=== PATIENT | male | born 1970 | race Hispanic/Latino ===

== ENCOUNTER 2019-01-10 14:41 | Emergency (ER) | payer OTHER ==
[2019-01-10 15:00] VITALS: BMI 42.3
[2019-01-10 15:05] VITALS: TEMP 98.1; O2SAT 96
--- NOTE | 2019-01-10 16:20 | ED PDOC ---
Arrival/HPI - General Chief Complaint: Lower Extremity Problem/Injury Time Seen by Provider: 01/10/19 14:45 Historian: Patient - History of Present Illness Narrative History of Present Illness (Text): 01/10/19 16:18 49 y/o male with no significant PMH presents to the ED sent by PMD from [facility] c/o right leg swelling and redness x 3 days. Pt was seen at PMD office today, who sent him here to rule out DVT. No recent long immobilization, surgery, history of malignancy, hormone use, or tobacco use. Denies trauma/injury, fever, chills, leg pain, numbness, weakness, paresthesias, nausea, vomiting, dizziness, SOB, chest pain, or any other associated symptoms. Past Medical History - Provider Review Nursing Documentation Reviewed: Yes - Psychiatric Hx Substance Use: No Family/Social History - Physician Review Nursing Documentation Reviewed: Yes Family/Social History: No Known Family HX Smoking Status: Never Smoked Hx Alcohol Use: No Hx Substance Use: No Allergies/Home Meds Allergies/Adverse Reactions: Allergies No Known Allergies Allergy (Verified 01/11/19 09:42) Review of Systems - Review of Systems Constitutional: Normal. absent: Fevers Eyes: Normal. absent: Vision Changes ENT: Normal. absent: Sore Throat, Sinus Congestion Respiratory: Normal. absent: SOB, Cough Cardiovascular: Normal. absent: Chest Pain, Palpitations Gastrointestinal: Normal. absent: Abdominal Pain, Nausea, Vomiting Genitourinary Male: Normal. absent: Dysuria Musculoskeletal: Normal. absent: Back Pain, Neck Pain Skin: Other (swelling and redness, right leg) Neurological: Normal. absent: Headache, Dizziness Psychiatric: Anxiety Physical Exam Vital Signs Reviewed: Yes Vital Signs Temp Pulse Resp BP Pulse Ox 01/10/19 15:18 160/85 H 01/10/19 15:04 98.1 F 103 H 18 96 Temperature: Afebrile Blood Pressure: Normal Pulse: Tachycardic Respiratory Rate: Normal Appearance: Positive for: Well-Appearing, Non-Toxic, Comfortable, Other (obese) Pain Distress: None Mental Status: Positive for: Alert and Oriented X 3 - Systems Exam Head: Present: Atraumatic, Normocephalic Pupils: Present: PERRL Extroacular Muscles: Present: EOMI Conjunctiva: Present: Normal Mouth: Present: Moist Mucous Membranes Neck: Present: Normal Range of Motion Respiratory/Chest: Present: Clear to Auscultation, Good Air Exchange. No: Respiratory Distress, Accessory Muscle Use Cardiovascular: Present: Regular Rate and Rhythm, Normal S1, S2, Peripheal Pulses Present Abdomen: Present: Other (obese). No: Tenderness Upper Extremity: Present: Normal Inspection, Normal ROM, NORMAL PULSES, Neurovascularly Intact, Capillary Refill < 2s. No: Cyanosis, Edema, Temperature Abnormalties Lower Extremity: Present: NORMAL PULSES (obtained by doppler), Normal ROM, Swelling (right lower leg, ankle, and foot), Erythema (over right lower leg, ankle, and foot; worst to posterior lower right leg), Temperature Abnormalties (mildly increasde warmth to right lower leg), Neurovascularly Intact, Capillary Refill < 2 s, Other (right lower leg edema easily compressible ). No: Tendernes s, Deformity Neurological: Present: GCS=15, Speech Normal, Motor Func Grossly Intact, Normal Sensory Function, Gait Normal Skin: Present: Warm, Dry, Other (see extremity exam) Psychiatric: Present: Alert, Oriented x 3, Normal Insight, Normal Concentration, Normal Affect, Normal Mood Medical Decision Making ED Course and Treatment: Initial Plan: * Labs * Venous Duplex Right Leg 17:07 Prelim read of right leg venous duplex DVT negative. Bloodwork reviewed, no leukocytosis but with mild left shift. Pt made aware of mild anemia, advised PMD followup. Provided with lab report. Distal lower pulses achieved with doppler, equal bilaterally. Pt continues to deny pain. Erythema of right leg outlined with skin marker. Discussed case with ED attending Dr. Cesar, who recommends discharge home with PO antibiotics. Pt afebrile. Pt requesting discharge home, does not want admission to hospital. Will treat with trial of PO antibiotics. First dose of keflex given here. Pt given very specific return instructions and instructed to followup with PMD within 48 hours. 18:18 Diagnostic testing results and plan of care discussed with patient. Strict instructions given regarding prescription use, importance of followup, and signs/symptoms to return to ER including worsening redness, swelling, pain, weakness, paresthesias, numbness or any other new/worsening symptoms. Pt verbalized understanding of discussion. Patient is A&Ox3, ambulating with steady gait, with vital signs stable for discharge. - Lab Interpretations Lab Results: 01/10/19 16:00 01/10/19 16:00 Lab Results 01/10/19 16:00: Sodium 142, Potassium 4.0, Chloride 106, Carbon Dioxide 28, Anion Gap 11, BUN 14, Creatinine 1.0, Est GFR ( Amer) > 60, Est GFR (Non- Af Amer) > 60, Random Glucose 95, Calcium 9.2, Total Bilirubin 0.4, AST 39, ALT 41, Alkaline Phosphatase 64, Total Protein 7.7, Albumin 4.1, Globulin 3.6, Albumin/Globulin Ratio 1.1 01/10/19 16:00: PT 12.4, INR 1.12, APTT 33.8 01/10/19 16:00: WBC 9.9, RBC 4.72, Hgb 12.7 L, Hct 39.0 L, MCV 82.6, MCH 26.9, MCHC 32.6, RDW 15.0 H, Plt Count 144, MPV 10.2, Neut % (Auto) 72.8 H, Lymph % (Auto) 19.5 L, [place] % (Auto) 6.9 H, Eos % (Auto) 0.6 L, Baso % (Auto) 0.2, Lymph # (Auto) 1.9, [place] # (Auto) 0.7 H, Eos # (Auto) 0.1, Baso # (Auto) 0.02, Absolute Neuts (auto) 7.23 H I have reviewed the lab results: Yes - RAD Interpretation Radiology Orders: 01/10/19 15:09 DUPLEX LOWER EXTRM VEIN RIGHT [US] Stat Disposition/Present on Arrival - Present on Arrival Any Indicators Present on Arrival: No History of DVT/PE: No History of Uncontrolled Diabetes: No Urinary Catheter: No History of Decub. Ulcer: No History Surgical Site Infection Following: None - Disposition Have Diagnosis and Disposition been Completed?: Yes Diagnosis: Cellulitis, Leg edema Disposition: HOME/ ROUTINE Disposition Time: 17:13 Patient Plan: Discharge Condition: STABLE Discharge Instructions (ExitCare): Swelling, Cellulitis (ED) Additional Instructions: Keflex every 6 hours for 7 days Elevate edematous leg Followup with primary doctor tomorrow Return to ER with any new/worsening symptoms Prescriptions: Cephalexin [Keflex] 500 mg PO QID 7 Days #28 capsule Referrals: Maribel Gomez MD [Medical Doctor] - [place] up [place] [facility] [place] [facility] [place] - Follow up with primary Forms: [employer] (Irish), WORK NOTE
[2019-01-10 16:28] LABS: BASO # 0.02 K/mm3 (0.0-2.0); BASO % 0.2 % (0.0-3.0); EOS # 0.1 (0.0-0.7); EOS % 0.6 % (1.5-5.0); HEMOGLOBIN 12.7 g/dL (14.0-18.0); LYMPH # 1.9 (1.2-3.4); LYMPH % 19.5 % (22.0-35.0); MEAN CELL VOLUME 82.6 fl (80.0-105.0); MEAN CORPUSCULAR HEMOGLOBIN 26.9 pg (25.0-35.0); MEAN CORPUSCULAR HGB CONC 32.6 g/dl (31.0-37.0); MEAN PLATELET VOLUME 10.2 fl (7.0-11.0); MONO # 0.7 (0.1-0.6); MONO % 6.9 % (1.0-6.0); RBC 4.72 10^6/uL (3.5-6.1); WHITE BLOOD COUNT 9.9 10^3/uL (4.5-11.0)
[2019-01-10 16:35] LABS: ALB/GLOB RATIO 1.1 (1.1-1.8); ALBUMIN 4.1 g/dL (3.0-4.8); ALT/SGPT 41 U/L (7-56); AST/SGOT 39 U/L (17-59); BLOOD UREA NITROGEN 14 mg/dL (7-21); CALCIUM 9.2 mg/dL (8.4-10.5); GFR NON-AFRICAN AMERICAN > 60
[2019-01-10 16:36] LABS: INR 1.12; PARTIAL THROMBOPLASTIN TIME 33.8 Seconds (26.9-38.3); PROTHROMBIN TIME 12.4 SECONDS (9.4-12.5)
--- NOTE | 2019-01-10 17:52 | US ---
PROCEDURE: Right lower extremity venous US HISTORY: Leg pain and swelling. Evaluate for DVT. PHYSICIAN(S): Maximiliano Lares M.D. TECHNIQUE: Duplex sonography and color-flow Doppler with graded compression were used to evaluate the deep venous system of the right lower extremity. The exam is limited by body habitus. FINDINGS: The visualized deep venous system of the right lower extremity is sonographically normal and compressible. Normal waveforms and augmentation are seen. There is no sonographic evidence for deep venous thrombosis in the visualized segments of the right lower extremity. IMPRESSION: 1. No sonographic evidence for deep venous thrombosis in the visualized segments of the right lower extremity. 2. Limited study.
[2019-01-10 18:41] VITALS: BP 142/75; PULSE 85; RESP 20
== END 2019-01-10 18:15 | disposition home or self-care (01) ==
LOC: ED 14:41 → MERGE 14:41 → ED 18:15
DX: R60.0 Localized edema (principal); L03.115 Cellulitis of right lower limb